=== PATIENT | male | born 2000 | race Two or more races ===

== ENCOUNTER 2023-08-01 21:33 | Emergency (ER) | payer OTHER ==
[2023-08-01 21:43] VITALS: BP 139/72; PULSE 92; RESP 18; TEMP 102.1; BMI 25.0
[2023-08-01] MEDS ORDERED: IBUPROFEN 600 MG TABLET (FP) PO ONE ×2 (22:35→22:39)
[2023-08-01] MEDS ORDERED: ACETAMINOPHEN 500 MG TABLET (FP) PO ONE (22:35)
[2023-08-01] MEDS ORDERED: ACETAMINOPHEN 500 MG TABLET (FP) ONE (22:39)
== END 2023-08-01 22:56 | disposition home or self-care (01) ==
LOC: JER 21:33 → JERFT 21:33 → JER 22:56
DX: R05.9 Cough, unspecified (principal); J02.9 Acute pharyngitis, unspecified; R50.9 Fever, unspecified; J11.1 Influenza due to unidentified influenza virus with other respiratory manifestations; R09.89 Other specified symptoms and signs involving the circulatory and respiratory systems; Z20.822 Contact with and (suspected) exposure to COVID-19
CPT/HCPCS: 0241U-QW; 99283-25